=== PATIENT | female | born 1940 | race Caucasian/White ===

== ENCOUNTER 2018-12-11 17:32 | Emergency (ER) | payer MEDICAID, MEDICARE ==
[~2018-12-11] VITALS: Ht 162.6 cm; Wt 69.0 kg
[2018-12-11 20:04] VITALS: BP 136/72
== END 2018-12-11 20:48 | disposition left against medical advice (07) ==
LOC: ED 20:46 → 5SO 20:47 → UNDOADMIN 20:47 → ED 20:48
DX: R11.2 Nausea with vomiting, unspecified (principal); E11.9 Type 2 diabetes mellitus without complications
CPT/HCPCS: 36415; 80053; 83605; 83690; 83880; 84484; 85025; 85610; 93005; 96361; 96374; 99284; J2405; J7030